=== PATIENT | female | born 1995 | race Caucasian/White ===

== ENCOUNTER 2017-11-23 16:17 | Emergency (ER) | payer BC ==
--- NOTE | 2017-11-23 17:00 | EDM.PDOC ---
ED HPI GENERAL MEDICAL PROBLEM - General Chief Complaint: Headache Stated Complaint: HEADACHE Time Seen by Provider: 11/23/17 17:00 Source of Information: Reports: Patient History Limitations: Reports: No Limitations - History of Present Illness INITIAL COMMENTS - FREE TEXT/NARRATIVE: HISTORY AND PHYSICAL: History of present illness: Patient is a 22-year-old female here with complaints of headache. She reports that she has been having headache on and off for the past 6 weeks. She states that she'll have a constant pressure but gets worse at times and feels it more in the back of her head. She recently moved to [place] from [place] and states that she has been under a lot of stress in the past couple of months. She does note that the headache gets worse and she is feeling more stress. She states that she does occasionally get neck pain and does feel tenseness in the base of the skull/neck. She reports that she has had migraines in the past but states this is different. She denies any nausea, vomiting, fevers, chills, photophobia, phonophobia, head injury. She states she is taking Motrin with little relief. She rates her pain as 4/10 at current and states this is tolerable for her. Review of systems: As per history of present illness and below otherwise all systems reviewed and negative. Past medical history: As per history of present illness and as reviewed below otherwise noncontributory. Surgical history: As per history of present illness and as reviewed below otherwise noncontributory. Social history: No reported history of drug or alcohol abuse. Family history: As per history of present illness and as reviewed below otherwise noncontributory. Physical exam: General: Patient sitting comfortably in no acute distress and nontoxic appearing HEENT: Atraumatic, normocephalic, pupils reactive, negative for conjunctival pallor or scleral icterus, mucous membranes moist, throat clear, neck supple, nontender, trachea midline. No meningeal signs. Lungs: Clear to auscultation, breath sounds equal bilaterally, chest nontender. Heart: S1S2, regular, negative for clicks, rubs, or overt murmur. Abdomen: Soft, nondistended, nontender. Negative for masses or hepatosplenomegaly. Negative for costovertebral tenderness. Pelvis: Stable nontender. Genitourinary: Deferred. Rectal: Deferred. Spine: no cervical spinous process or paraspinal tenderness. Extremities: Atraumatic, negative for cords or calf pain. Neurovascular unremarkable. Neuro: Awake, alert, oriented. Cranial nerves II through XII unremarkable. Cerebellum unremarkable. Motor and sensory unremarkable throughout. Exam nonfocal. Notes: Discussed with patient that with her headaches had imaging would be recommended. Discussed doing CT scan versus getting outpatient MRI and patient would prefer to follow-up with primary care provider for possible brain MRI. Diagnostics: None Therapeutics: None Prescriptions: Flexeril Impression: Headache, likely tension-headache Plan: 1. Alternate tylenol and motrin as needed, take flexeril at bedtime PRN headache /neck pain 2. Follow up with primary care provider 3. Return to ED as needed as discussed Definitive disposition and diagnosis as appropriate pending reevaluation and review of above. headache Pain Score (Numeric/FACES): 4 - Related Data Allergies Allergy/AdvReac Type Severity Reaction Status Date / Time cefaclor [From Ceclor] Allergy Hives Verified 11/23/17 16:57 Home Meds: Home Meds Cyclobenzaprine [Flexeril] 10 mg PO BEDTIME #10 tab 11/23/17 [Rx] Escitalopram [Lexapro] 10 mg PO DAILY 11/23/17 [History] Norgestimate-Ethinyl Estradiol [Trinessa Tablet] 1 each PO 11/23/17 [History] ED ROS GENERAL - Review of Systems Review Of Systems: ROS reveals no pertinent complaints other than HPI. - Physical Exam Exam: See Below (see dictation) Course - Vital Signs Last Recorded V/S: Last Vital Signs Temp 36.6 C 11/23/17 16:49 Pulse 83 11/23/17 16:49 Resp 18 11/23/17 16:49 BP 121/69 11/23/17 16:49 Pulse Ox 95 11/23/17 16:49 Departure - Departure Time of Disposition: 17:01 Disposition: Home, Self-Care 01 Condition: Good Clinical Impression: Headache - Discharge Information Prescriptions: Cyclobenzaprine [Flexeril] 10 mg PO BEDTIME #10 tab Instructions: General Headache Without Cause, [id number] Referrals: PCP,None [Primary Care Provider] - Forms: ED Department Discharge Additional Instructions: The following information is given to patients seen in the emergency department who are being discharged to home. This information is to outline your options for follow-up care. We provide all patients seen in our emergency department with a follow-up referral. The need for follow-up, as well as the timing and circumstances, are variable depending upon the specifics of your emergency department visit. If you don't have a primary care physician on staff, we will provide you with a referral. We always advise you to contact your personal physician following an emergency department visit to inform them of the circumstance of the visit and for follow-up with them and/or the need for any referrals to a consulting specialist. The emergency department will also refer you to a specialist when appropriate. This referral assures that you have the opportunity for follow-up care with a specialist. All of these measure are taken in an effort to provide you with optimal care, which includes your follow-up. Under all circumstances we always encourage you to contact your private physician who remains a resource for coordinating your care. When calling for follow-up care, please make the office aware that this follow-up is from your recent emergency room visit. If for any reason you are refused follow-up, please contact the [facility] Emergency Department at and asked to speak to the emergency department charge nurse. [facility] [address] [place] [address] [id number] [facility] [address] [place] [id number] 1. Alternate tylenol and motrin as needed, take flexeril at bedtime PRN headache /neck pain 2. Follow up with primary care provider 3. Return to ED as needed as discussed
== END 2017-11-23 17:17 | disposition home or self-care (01) ==
LOC: MW.ED 16:17
DX: R51 Headache (principal); Z79.899 Other long term (current) drug therapy; Z88.1 Allergy status to other antibiotic agents
CPT/HCPCS: 99282; 99283